=== PATIENT | female | born 1965 | race African-American/Black ===

== ENCOUNTER → 2020-05-30 | Outpatient (CLI) | payer SELFPAY ==
[~2020-05-30] MED LIST: EPIDRIN PO; FLINTSTONES COM1 CT1 PO; VITAMIN B-150 MG PO; VITAMIN B1100 MCG/ML IM; VITAMIN D1000 IU PO; VITAMIN D50000 I1 PO; [UNRECOGNIZED DRUG - OTHER] PO; [UNRECOGNIZED DRUG - OTHER] PO
== END ==
LOC: ZCOL.LAB 14:46
DX: R07.89 Other chest pain (principal)

== ENCOUNTER 2021-02-24 14:58 | Day surgery (SDC) | payer OTHER ==
[~2021-02-24] VITALS: Ht 157.5 cm; Wt 92.2 kg
[2021-02-24 15:43] VITALS: BP 135/68; PULSE 68; TEMP 98.5
[2021-02-24] MEDS ORDERED: TAPAZOLE5 MG PO (15:55)
[2021-02-24] MEDS ORDERED: LEXAPRO 10MG10 MG PO (15:56)
[2021-02-24] MEDS ORDERED: PLAVIX 75MG TAB75 MG PO (15:57)
[2021-02-24] MEDS ORDERED: NORVASC 5MG5 MG/TAB PO (15:57)
[2021-02-24] MEDS ORDERED: FLOMAX 0.40.4 MG/CAP PO (15:58)
[2021-02-24] MEDS ORDERED: PERCOCET 325 MG1 TA2 PO (15:59)
[2021-02-24] MEDS ORDERED: ZOFRAN ODT4 MG PO (16:00)
[2021-02-24] MEDS ORDERED: ONE-A-DAY ESSE1 EACH PO (16:00)
[2021-02-24] MEDS ORDERED: AZO-CRANBERRY450 MG PO (16:01)
[2021-02-24] MEDS ORDERED: CALTRATE 600 +1 TAB PO (16:01)
[2021-02-24] MEDS ORDERED: BLACK COHOSH40 MG PO (16:02)
[2021-02-24] MEDS ORDERED: VITAMIN D31000 IU PO (16:04)
--- NOTE | 2021-02-24 16:11 | NUR ---
TO RM 7 AT 1515- CALL LIGHT IN REACH AT BEDSIDE.
[2021-02-24] MEDS ORDERED: PYRIDIUM 100MG100 MG PO (18:10)
[2021-02-24 18:53] VITALS: BP 129/72; PULSE 64; TEMP 98.1
[2021-02-24 19:23] VITALS: BP 118/71; PULSE 73
[2021-02-24 19:53] VITALS: BP 110/53; PULSE 68; TEMP 98
[2021-02-24 20:53] VITALS: BP 94/55; PULSE 74; TEMP 97.8
[2021-02-24 21:53] VITALS: BP 102/61; PULSE 81; TEMP 97.8
[2021-02-25 00:16] VITALS: BP 81/43; PULSE 53; TEMP 97
[2021-02-25 00:45] VITALS: BP 94/62; PULSE 68
[2021-02-25 02:20] VITALS: BP 96/59; PULSE 61
--- NOTE | 2021-02-25 06:28 | NUR ---
PATIENT ARRIVED TO ROOM 342 AT 1850. PATIENT REPORTED SEVERE PAIN IN HER ABDOMEN AND VAGINAL AREA. DR. BEY NOTIFIED. PRN MORPHINE ORDERED.
[2021-02-25 07:33] VITALS: BP 107/69; PULSE 52; TEMP 98.9
--- NOTE | 2021-02-25 07:45 | NUR ---
Patient stated that she is having pain still. Tylenol given and pyridium. She is rating her pain at 6 on a 0-10 scale. No complaints of nausea. Her blood pressure is doing better this morning. She is voiding without issues. She stated she has some burning with voiding and to her right side. No other changes at this time. Call light wihtin reach. Patient should be able to discharge after breakfast.
--- NOTE | 2021-02-25 10:02 | NUR ---
Initial visit; Patient and her thanked Sand Bobber for looking in on her and offering God's blessings and a get well message.
--- NOTE | 2021-02-25 10:30 | NUR ---
Patient is discharging home. Discharge instructions discussed with patient. Explained when her follow up is. She verbalized understanding. Explained Dr Martin is discharging her with pyridium and tylenol for pain. Copies of discharge instructions given to patient. Her packed up all belongings and they were sent with patient. Patient walked out via wheel chair by Javier WESTFALL.
== END 2021-02-25 10:45 | disposition home or self-care (01) ==
LOC: SDCO 14:58 → SURG 19:00 → SDCO 02-25 10:45
DX: N20.2 Calculus of kidney with calculus of ureter (principal); R35.0 Frequency of micturition; J40 Bronchitis, not specified as acute or chronic; I10 Essential (primary) hypertension; G47.33 Obstructive sleep apnea (adult) (pediatric); F32.9 Major depressive disorder, single episode, unspecified; Z90.710 Acquired absence of both cervix and uterus; Z79.891 Long term (current) use of opiate analgesic; Z79.899 Other long term (current) drug therapy; Z20.822 Contact with and (suspected) exposure to COVID-19; Z88.5 Allergy status to narcotic agent; Z88.8 Allergy status to other drugs, medicaments and biological substances; Z79.02 Long term (current) use of antithrombotics/antiplatelets; Z99.89 Dependence on other enabling machines and devices
CPT/HCPCS: OP; C1769; J0690; J2270; J2405; J2704; J3010; J7120; Q9967

== ENCOUNTER 2022-03-10 12:34 | Day surgery (SDC) | payer OTHER ==
[2022-03-10] VITALS (8 sets, daily range): BP systolic 105–128; BP diastolic 66–86; PULSE 66–80; TEMP 98.3
[~2022-03-10] VITALS: Ht 157.6 cm; Wt 91.7 kg
[~2022-03-10 12:34] MED LIST changes: +AZO-CRANBERRY450 MG PO; +BLACK COHOSH40 MG PO; +CALTRATE 600 +1 TAB PO; +FLOMAX 0.40.4 MG/CAP PO; +LEXAPRO 10MG10 MG PO; +NORVASC 5MG5 MG/TAB PO; +ONE-A-DAY ESSE1 EACH PO; +PERCOCET 325 MG1 TA2 PO; +PLAVIX 75MG TAB75 MG PO; +PYRIDIUM 100MG100 MG PO; +TAPAZOLE5 MG PO; +VITAMIN D31000 IU PO; +ZOFRAN ODT4 MG PO
[2022-03-10 13:27] LABS: HEMATOCRIT 31.5 % (37.0-47.0); MEAN CELL VOLUME 84 fl (80.0-100.0); MEAN CORPUSCULAR HEMOGLOBIN 27 pg (27-31); MEAN CORPUSCULAR HGB CONC 32 g/dl (33.0-37.0); MEAN PLATELET VOLUME 10.1 fl (7.4-10.4); PLATELET COUNT 339 K/mm3 (130-400); RED BLOOD COUNT 3.74 M/mm3 (4.10-5.30); REDCELL DISTRIBUTION WIDTH-CV 15.6 % (11.5-14.5)
[2022-03-10 13:42] LABS: PROTHROMBIN TIME 11.4 SECONDS (9.7-12.8)
[2022-03-10 13:45] LABS: CREATININE, serum 0.72 mg/dL (0.57-1.11); PARTIAL THROMBOPLASTIN TIME 31.4 SECONDS (26.0-37.0); POTASSIUM 4.1 mmol/L (3.5-4.5)
[2022-03-10] MEDS ORDERED: VITAMIN D31000 I1 PO (13:45)
[2022-03-10] MEDS ORDERED: TAPAZOLE5 MG PO (13:47)
[2022-03-10] MEDS ORDERED: NEURONTIN600 MG/TAB PO (13:48)
[2022-03-10] MEDS ORDERED: LIPITOR 40MG TA40 MG PO (13:49)
[2022-03-10] MEDS ORDERED: BRILINTA90 MG PO (13:49)
[2022-03-10] MEDS ORDERED: LAMICTAL ODT50 MG PO (13:49)
[2022-03-10] MEDS ORDERED: DESYREL DIVIDO150 M1 PO (13:50)
--- NOTE | 2022-03-10 14:07 | NUR ---
See merge for all medication, assessment, intervention, and vital sign times.
--- NOTE | 2022-03-10 15:00 | NUR ---
PT BACK TO EU 10 VIA BED FROM [employer]BER, IN ROOM, STATES TALKED WITH HIM, PT AWAKE, ALERT, DOES CLOSE EYES OCCASIONALLY, VSS. CALL LIGHT IN REACH, TAKES WATER, TR BAND ON INTACT, NO SWELLING OR PAIN
--- NOTE | 2022-03-10 16:15 | NUR ---
PT SITS UP IN BED, EATS MEAL, SITE REMAINS THE SAME
--- NOTE | 2022-03-10 16:35 | NUR ---
STARTED RELEASING AIR FROM BAND, 2CC AT A TIME, PT STATES THAT WRIST IS VERY SORE, AND THAT IT STARTED NOT TO LONG AGO, BANDAID ABOVE SITE 2" PUFFINESS NOTED, BUT AREA IS SOFT PRESSURE APPLIED WHILE REMOVING AIR FROM BAND OVER 15 MIN. THEN BANDAID OVER SITES, AREA IS CLEAN AND DRY, NO SWELLING AND AREAS SOFT, PT STILL C/O SORENESS TO AREA 8/10 AND WOULD LIKE SOMEING FOR IT, DR PARSONS CALLED AND NEW ORDERS RECIEVED, WITH JORDIN WRAP APPLIED FIRMLY TO LOWER ARM DIRECTED.
--- NOTE | 2022-03-10 17:00 | NUR ---
PT SITS ON SIDE OF BED, REVIEWED DISCHARGE INST. WITH PT ON ACTIVITY, CARE OF SITE AND FOLLOWUP, ALSO REVIEWED PRECAUTIONS WITH LIFTING AND WHAT TO DO IF AREA CON'T WITH INCREASE SORENESS OR SIGNES OF BLEEDING WITH VERBAL UNDERSTANDING. IV D'CD INTACT, UP TO B/R TO VOID, GAIT STEADY, PT INST. ON JORDIN WRAP CARE ALSO. SITE INSEPECTED AGAIN REMAINS THE SAME, PT DISCHARGED VIA W/C TO CAR WITH AT 1745
== END 2022-03-10 17:45 | disposition home or self-care (01) ==
LOC: COL.CAR 12:34
PROVIDERS: Internal Medicine Interventional Cardiology
DX: R07.89 Other chest pain (principal); R94.39 Abnormal result of other cardiovascular function study; I10 Essential (primary) hypertension; I34.0 Nonrheumatic mitral (valve) insufficiency; Z79.899 Other long term (current) drug therapy
CPT/HCPCS: C1769; J1644; J2250; J3010